=== PATIENT | male | born 1945 | race Caucasian/White ===

== ENCOUNTER 2022-07-01 11:18 | Emergency (ER) | payer MEDICARE ==
[~2022-07-01] VITALS: Ht 185.4 cm; Wt 93.2 kg
[2022-07-01 11:28] VITALS: TEMP 97.6
[2022-07-01 12:23] LABS: ALBUMIN 3.8 gm/dL (3.4-4.8); BILIRUBIN,TOTAL 0.5 mg/dL (0.2-1.2); CREATININE, serum 1.13 mg/dL (0.72-1.25); POTASSIUM 4.5 mmol/L (3.5-4.5); TOTAL PROTEIN 6.3 gm/dL (6.2-8.1)
[2022-07-01 12:25] LABS: HEMATOCRIT 41.8 % (42.0-52.0); HEMOGLOBIN 13.7 g/dl (13.5-18.0); MEAN CELL VOLUME 104 fl (80.0-100.0); MEAN CORPUSCULAR HEMOGLOBIN 34 pg (27-31); MEAN CORPUSCULAR HGB CONC 33 g/dl (33.0-37.0); MEAN PLATELET VOLUME 10.6 fl (7.4-10.4); PLATELET COUNT 1238 K/mm3 (130-400); RED BLOOD COUNT 4.04 M/mm3 (4.20-5.60); REDCELL DISTRIBUTION WIDTH-CV 21.4 % (11.5-14.5)
[2022-07-01 13:00] VITALS: BP 186/90; PULSE 56
[2022-07-01 13:13] LABS: ANISOCYTOSIS 2+; BAND 2 % (0-10); EOSINOPHIL 1 % (0-4); LYMPHOCYTE 20 % (20.0-51.0); NEUTROPHILS 73 % (42.0-75.2); NUCLEATED RED BLOOD CELL 2 (0-6); PLATELET ESTIMATE INCREASED (NORMAL)
== END 2022-07-01 13:20 | disposition home or self-care (01) ==
LOC: COL.ER 11:18
PROVIDERS: Nurse Practitioner
DX: Z00.01 Encounter for general adult medical examination with abnormal findings (principal); D75.839 Thrombocytosis, unspecified; Z28.310 Unvaccinated for COVID-19